=== PATIENT | female | born 1990 | race Caucasian/White ===

== ENCOUNTER 2024-11-24 18:57 | Emergency (ER) | payer OTHER, SELFPAY ==
--- OUTSIDE RECORDS SUMMARY | 2024-11-24 18:59 | XMS_ITS | Encounter Summary ---
Author Organization [facility] Address [address] [place] [address] Care Team Providers Care All Source Intelligence Technician Name Role Phone July Primary Care Provider [phone] Suzette Larson-C Unavailable [phone] Suzette Larson-C Unavailable [phone] Marjorie Murillo PA-C Primary Care Provider [phone] Marjorie Murillo PA-C Unavailable [phone] Encounter Details Date Type Department Care Team (Late st Contact Info) Description 04/19/2020 [facility] Medical Advice [facility] [id number] [place] [address] Charla Darling Social History Tobacco Use Types Packs/Day Years Used Date Smoking Tobacco: Former Cigarettes Q uit: 06/21/2019 Smokeless Tobacco: Never Alcohol Use Standard Drinks/Week Comments Never 0 (1 standard drink = 0.6 oz pur e alcohol) AUDIT-C Answer Date Recorded Q1: How often do you have a drink containing alc ohol? Never 02/09/2020 Average Number of Drinks Not on file 020 Frequency of Binge Drinking Not on file 01/12 [place] Depression Scale Answer Date Recorded [place] Depression Score 3 03/12/2020 Last EPDS Self Harm Result Not on file 03/12 Comments No Sex and Gender Information Value Date Recorded Sex Assigned at Not on file Legal Sex Female 3:17 AM GAMING INVESTIGATOR Gender Identity Not on file Sexual Orientation Not on file COVID-19 Exposure Response Date Recorded In the last month, have you been in contact with someone who was confirmed or suspected to have Coronavirus / COVID-19? No / Unsure 04/15/2020 5:42 PM GAMING INVESTIGATOR documented as of this encounter Plan of Treatment Not on file documented as of this encounter Visit Diagnoses Not on filedocumented in this encounter Care Teams All Source Intelligence Technician Relationship Specialty Start Date End Date July PCP - General Physician Alterations Expert 04/04/15 06/03/23 Marjorie Murillo PA-C [address] [place] [address] PCP - General Family Medicine 06/04/23 Suzette Larson PA-C [address] [place] [address] Physician Alterations Expert 05/07/22 Suzette Larson PA-C [address] [place] [address] Assigned Surgical Provider 04/26/22 12/03/23 Marjorie Murillo PA-C [address] [place] [address] Assigned PCP 07/04/23 documented as of this encounter
--- OUTSIDE RECORDS SUMMARY | 2024-11-24 18:59 | XMS_ITS | Encounter Summary ---
Author Organization [facility] Address [address] [place] [address] Care Team Providers Care Veterinary Parasitologist Name Role Phone July Primary Care Provider [phone] Suzette Larson-C Unavailable [phone] Suzette Larson-C Unavailable [phone] Marjorie Murillo PA-C Primary Care Provider [phone] Marjorie Murillo PA-C Unavailable [phone] Encounter Details Date Type Department Care Team (Late st Contact Info) Description 04/16/2022 [facility] [address] [place] [address] Karin Joy, RN Social History Tobacco Use Types Packs/Day Years [...] of Binge Drinking Not on file 01/12 PHQ-2 Answer Date Recorded PHQ-2 Score Incomplete 04/11/2022 [place] Depression Scale Answer Date Recorded [place] Depression Score 3 03/12/2020 Last EPDS Self Harm Result Not on file 03/12 Comments No Sex and Gender Information Value Date Recorded Sex Assigned at Not on file Legal Sex Female 3:17 AM PRODUCTION HAND Gender Identity Not on file Sexual Orientation Not on file COVID-19 Exposure Response Date Recorded In the last 10 days, have yo u been in contact with someone who was confirmed or suspected to have Coronavirus/COVID-19? No / Unsure 04/17/2022 4:18 PM PRODUCTION HAND documented as of this encounter Plan of Treatment Not on file documented as of this encounter Visit Diagnoses Not on filedocumented in this encounter Care Teams Veterinary Parasitologist Relationship Specialty Start Date End Date July PCP - General Physician Feed Mill Operator 04/04/15 06/03/23 Marjorie Murillo PA-C [address] [place] [address] PCP - General Family Medicine 06/04/23 Suzette Larson PA-C [address] [place] [address] Physician Feed Mill Operator 05/07/22 Suzette Larson PA-C [address] [place] [address] Assigned Surgical Provider 04/26/22 12/03/23 Marjorie Murillo PA-C [address] [place] [address] Assigned PCP 07/04/23 documented as of this encounter
--- OUTSIDE RECORDS SUMMARY | 2024-11-24 18:59 | XMS_ITS | Encounter Summary ---
Author Organization [place] Address Count includes the [facility] [place] [address] Care Team Providers Care Gaming Worker Name Role Phone July Primary Care Provider [phone] Suzette Larson-C Unavailable [phone] Suzette Larson-C Unavailable [phone] Marjorie Murillo PA-C Primary Care Provider [phone] Marjorie Murillo-C Unavailable [phone] Encounter Details Date Type Department Care Team (Late st Contact Info) Description 09/26/2020 [facility] [place] [address] [facility] [address] [place] [address] [facility] Social History Tobacco Use Types Packs/Day Years [...] of Binge Drinking Not on file 01/12 [place] Depression Scale Answer Date Recorded [place] Depression Score 3 03/12/2020 Last EPDS Self Harm Result Not on file 03/12 Comments No Sex and Gender Information Value Date Recorded Sex Assigned at Not on file Legal Sex Female 3:17 AM 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 Gender Identity Not on file Sexual Orientation Not on file documented as of this encounter Plan of Treatment Not on file documented as of this encounter Visit Diagnoses Not on filedocumented in this encounter Care Teams Gaming Worker Relationship Specialty Start Date End Date July PCP - General Physician Consulting Hr Professional 04/04/15 06/03/23 Marjorie Murillo PA-C [address] [place] [address] PCP - General Family Medicine 06/04/23 Suzette Larson PA-C [address] [place] [address] Physician Consulting Hr Professional 05/07/22 Suzette Larson PA-C [address] [place] [address] Assigned Surgical Provider 04/26/22 12/03/23 Marjorie Murillo PA-C [address] [place] [address] Assigned PCP 07/04/23 documented as of this encounter
--- OUTSIDE RECORDS SUMMARY | 2024-11-24 18:59 | XMS_ITS | Encounter Summary ---
Author Organization [place] Address [address] [place] [address] Care Team Providers Care Auto Radiator Mechanic Name Role Phone July Primary Care Provider [phone] Suzette Larson-C Unavailable [phone] Suzette Larson-C Unavailable [phone] Marjorie Murillo PA-C Primary Care Provider [phone] Marjorie Murillo-C Unavailable [phone] Encounter Details Date Type Department Care Team (Late st Contact Info) Description 08/08/2022 [facility] [place] [address] [address] Nichole Wilburn Social History Tobacco Use Types Packs/Day Years [...] Answer Date Recorded PHQ-2 Score Incomplete 04/11/2022 [place] Depression Scale Answer Date Recorded [place] Depression Score 3 03/12/2020 Last EPDS Self Harm Result Not on file 11/30 /2020 Comments No Sex and Gender Information Value Date Recorded Sex Assigned at Not on file Legal Sex Female 3:17 AM WEB DEVELOPMENT 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 Gender Identity Not on file Sexual Orientation Not on file documented as of this encounter Plan of Treatment Not on file documented as of this encounter Visit Diagnoses Not on filedocumented in this encounter Care Teams Auto Radiator Mechanic Relationship Specialty Start Date End Date July PCP - General Physician Pharmacist Intern 04/04/15 06/03/23 Marjorie Murillo PA-C [address] [place] [address] PCP - General Family Medicine 06/04/23 Suzette Larson PA-C [address] [place] [address] Physician Pharmacist Intern 05/07/22 Suzette Larson PA-C [address] [place] [address] Assigned Surgical Provider 04/26/22 12/03/23 Marjorie Murillo PA-C [address] [place] [address] Assigned PCP 07/04/23 documented as of this encounter
--- OUTSIDE RECORDS SUMMARY | 2024-11-24 18:59 | XMS_ITS | Encounter Summary ---
Author Organization [facility] Address [address] [place] [address] Care Team Providers Care Loss Claim Clerk Name Role Phone Suzette Larson PA-C Unavailable [phone] Marjorie Murillo PA-C Primary Care Provider [phone] Marjorie Murillo PA-C Unavailable [phone] Encounter Details Date Type Department Care Team (Late st Contact Info) Description 09/02/2024 Results Follow-Up [facility] [place] [address] [place] [address] Bobbi Chavarria PA-C [address] [place] [address] Subj: Message about your results Social History Tobacco Use Types Packs/Day Years Used Date Smoking Tobacco: Former Cigarettes 0.5 10 0 06/20/2009 - 06/21/2019 Smokeless Tobacco: Never Alcohol Use Standard Drinks/Week Comments Yes 0 (1 standard drink = 0.6 oz pur e alcohol) rare, maybe one drink a month Social Connection and Isolation Panel [NHANES] A nswer Date Recorded Frequency of Communication with Friends and Fami ly Not on file 06/03/2023 How often do you get together with friends or re latives? Twice a week 06/03/2023 Attends Rastafarian Services Not on file 06/03 Active Member of Clubs or Organizations Not on f ile 06/03/2023 Attends Club or Organization Meetings Not on bryson e 06/03/2023 Marital Status Not on file 06/03/2023 AUDIT-C Answer Date Recorded Q1: How often do you have a drink containing alc ohol? Never 02/09/2020 Average Number of Drinks Not on file 020 Frequency of Binge Drinking Not on file 01/12 PHQ-2 Answer Date Recorded PHQ-2 Score 0 07[facility]/2024 [facility] Questionnaire Answer Date Recorded Do you feel stress - tense, restless, nervous, or anxious, or unable to sleep at night because your mind is troubled all the time - these days? Only a little 06/03/2023 Exercise Vital Sign Answer Date Recorde d On average, how many days pe r week do you engage in moderate to strenuous exercise (like a brisk walk)? 2 days Minutes of Exercise per Session Not on file 06/03/2023 [place] Depression Scale Answer Date Recorded Last EPDS Total Score Not on file 03/25/2023 The thought of harming myself has occurred to me . Never 03/25/2023 Adolescent Education Answer Date Record ed Getting School Help Needed Not on file 01/09 Food Insecurity Answer Date Recorded Within the past 12 months, d id you worry that your food would run out before you got money to buy more? No 06/03/2023 Within the past 12 months, d id the food you bought just not last and you didn t have money to get more? No 06/03/2023 Housing Stability Answer Date Recorded Do you have housing? (Housin g is defined as stable permanent housing and does not include staying outside in a car, in a tent, in an abandoned building, in an overnight retirement, or couch-surfing.) Yes 06/03/2023 Are you worried about losing your housing? No 06/03/2023 Financial Resource Strain Answer Date R ecorded Within the past 12 months, h ave you or your family members you live with been unable to get utilities (heat, electricity) when it was really needed? No 06/03/2023 Transportation Needs Answer Date Record ed Within the past 12 months, h as lack of transportation kept you from medical appointments, getting your medicines, non-medical meetings or appointments, work, or from getting things that you need? No 06/03/2023 Interpersonal Safety Answer Date Record ed Do you feel physically and e motionally safe where you currently live? Yes 07/12/2024 Within the past 12 months, h ave you been hit, slapped, kicked or otherwise physically hurt by someone? No 07/12/2024 Within the past 12 months, h ave you been humiliated or emotionally abused in other ways by your partner or ex-partner? No 07/12/2024 Comments No Sex and Gender Information Value Date Recorded Sex Assigned at Not on file Legal Sex Female 3:17 AM SURVEYOR'S ASSISTANT Gender Identity Not on file Sexual Orientation Not on file documented as of this encounter Plan of Treatment Not on file documented as of this encounter Visit Diagnoses Not on filedocumented in this encounter Care Teams Loss Claim Clerk Relationship Specialty Start Date End Date Marjorie Murillo PA-C [address] [place] [address] PCP - General Family Medicine 06/04/23 Suzette Larson PA-C [address] [place] [address] Physician Dry Transfer Worker 05/07/22 Marjorie Murillo PA-C [address] [place] [address] Assigned PCP 07/04/23 documented as of this encounter
--- OUTSIDE RECORDS SUMMARY | 2024-11-24 18:59 | XMS_ITS | Clinical Summary ---
Author Organization [facility] Address [address] [place] [id number] Care Team Providers Care Lsat Instructor Name Role Phone Suzette Larson PA-C Unavailable [phone] Marjorie Murillo PA-C Primary Care Provider Marjorie Murillo PA-C Unavailable [phone] Allergies No known active allergies Medications fluticasone (FLONASE) 50 MCG/ACT nasal sprayIndications :Nasal congestion INSTILL 1 SPRAY INTO BOTH NOSTRILS DAILY 48 mL 2 4 Active Additional Information Patient not taking.Reported on 07/12/2024 olmesartan (BENICAR) 20 MG tabletIndication s:Essential hypertension Take 1 tablet (20 mg) by mouth daily. 90 tablet 5 Active amphetamine-dext roamphetamine (ADDERALL) 15 MG tablet Take 15 mg by mouth 2 times daily. 5 Active venlafaxine (EFFEXOR XR) 150 MG 24 hr capsule Take 150 mg by mouth daily. 5 Active SEMAGLUTIDE-WEIG HT MANAGEMENT SC Inject subcutaneously. 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 Follows with dermatology. ADHD (attention deficit hyperactivity disorder) 04/11/2022 Overview (06/04/2023): Follows with psychiatry Anxiety and depression 04/11/2022 Overview (06/04/2023): Psychiatrist Dr. Caceres History of kidney stones 04/11/2022 Overview (06/04/2023): Saw urology and plan was for stone risk evaluation but she did not proceed with this. She has not had further issues and does not want to follow-up with urology at this time. History of severe pre-eclampsia 05/07/2020 Resolved Problems Problem Noted Date Diagnosed Date Resolved Date Chronic hypertension with espinoza perimposed preeclampsia 03/26/2023 08/13/2023 03/23/2023 06/04/2023 History of hemorrhage 08/26/2022 06/04/2023 Iron deficiency anemia 05/07/202007/12 Overview (06/04/2023): Following with hematology Encounters Date Type Department Care Team Description 10/03/2024 9:00 AM CDT Virtual Visit [facility] [address] [place] [address] Marjorie Murillo PA-C Obesity (BMI 30.0-34.9) (Primary Dx); Essential hypertension 09/29/2024 Telephone [facility] [address] [place] [address] Marjorie Murillo PA-C Refill Request 09/29/2024 Refill [facility] [address] [place] [address] Marjorie Murillo PA-C Medication Refill 09/02/2024 3:50 PM CDT Office Visit [facility] [place] [address] [place] [address] Bobbi Chavarria PA-C Fatigue, unspecified type (Primary Dx); Sore throat; Dizziness 09/02/2024 Results Follow-Up [facility] [address] [place] [address] Bobbi Chavarria PA-C Subj: Message about your results 09/02/2024 Travel from Last 3 Months Immunizations Immunization Administration Dates Next Due Hepatitis B, Adult (Energix-B/Recombivax HB) Influenza Vaccine >6 months,quad, PF 01/23/2020 Influenza,INJ,MDCK,PF,Quad >6mo(Flucelvax) 01/19 RSV (Abrysvo) 03/12/2023 TDAP (Adacel,Boostrix) 01/19/2023,01/23/2020 Family History Medical History Relation Comments Depression Father Diabetes Type 2 Father diet controlled Hypertension Father Substance Abuse Father Unknown/Adopted Maternal Grandfather Moms adopte d father Heart Disease Maternal Grandmother Hypertension Maternal Grandmother Breast Cancer Maternal Great-Grandmother Anxiety Disorder Mother Depression Mother Hypertension Mother Mental Illness Mother ADHD, borderline Skin Cancer Mother Substance Abuse Mother Cancer Paternal Grandfather Esophageal Cancer Paternal Grandfather Hypertension Paternal Grandfather Anxiety Disorder Sister Depression Sister Mental Illness Sister ADHD, borderline Colon Cancer No family hx of Ovarian Cancer No family hx of Relation Status Comments Father Alive Maternal Grandfather Maternal Grandmother Maternal Great-Grandmother Alive Mother Alive Paternal Grandfather Paternal Grandmother Alive Sister Social History Tobacco Use Types Packs/Day Years Used Date Smoking Tobacco: Former Cigarettes 0.5 10 0 06/20/2009 - 06/21/2019 Smokeless Tobacco: Never Tobacco Cessation:Counseling Given: Not Answered Alcohol Use Standard Drinks/Week Comments Yes 0 (1 standard drink = 0.6 oz pur e alcohol) rare, maybe one drink a month Social Connection and Isolation Panel [NHANES] A nswer Date Recorded Frequency of Communication with Friends and Fami ly Not on file 06/03/2023 How often do you get together with friends or re latives? Twice a week 06/03/2023 Attends [employer] Services Not on file 06/03 Active Member [...] Answer Date Recorded PHQ-2 Score 0 07/12/2024 [facility] Occupational Stress Questionnaire Answer Date [...] Exercise per Session Not on file 06/03/2023 [place] Depression Scale Answer Date Recorded Last EPDS [...] Answer Date Recorded Do you have housing? 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 Gender Identity Not on file Sexual Orientation Not on file Last Filed Vital Signs Vital Sign Reading Time Taken Comments Blood Pressure 108/68 09/02/2024 4:01 PM CDT Pulse 96 09/02/2024 4:01 PM CDT Temperature 36.6 C (97.8 F) 09/02/2024 4:01 PM CDT Respiratory Rate 16 09/02/2024 4:01 PM CDT Oxygen Saturation 100% 09/02/2024 4:01 PM CDT Inhaled Oxygen Concentration - - Weight 85.3 kg (188 lb) 09/02/2024 4:01 PM CDT Height 165.1 cm (5' 5) 09/02/2024 4:01 PM CDT Body Mass Index 31.28 09/02/2024 4:01 PM CDT Plan of Treatment Health Maintenance Due Date Last Done Comments ADVANCE CARE PLANNING 1991 HEPATITIS B VACCINE (2 of 3 - 19+ 3-dose series) 07/01/2023 06/03/2023 COVID-19 VACCINE (2023- season) 2023 07/18/2020, 06/20/2020 ANNUAL REVIEW OF HM ORDERS 06/03/2024 06/03/2023 YEARLY PREVENTIVE VISIT 06/03/2024 06/03/2023 INFLUENZA VACCINE (#1) 2024 01/19/2023, 2019 BMP 09/02/2025 09/02/2024, 06/0 08/2023, 03/27/2023, Additional history exists PAP 05/04/2026 05/04/2023, 04/14, 05/07/2020, Additional history exists DTAP/TDAP/TD VACCINE (3 - Td or Tdap) 01/19/2033 01/19/2023, 01/23/2020 ZOSTER VACCINE (1 of 2) 2041 HEPATITIS C SCREENING Completed 08/26/2022 HIV SCREENING Completed 08/26/2022, 08/29/2019 RSV VACCINE Discontinued 03/12/2023 PHQ-2 (once per calendar year) Completed 07/12/2024, 06/03/2023 HPV VACCINE (No Doses Required) Completed MENINGITIS VACCINE Aged Out No longer eligible based on patient's age to complete this topic PNEUMOCOCCAL VACCINE: PEDIATRICS (0 to 5 YEARS) AND AT-RISK PATIENTS (6 to 49 YEARS) Aged Out No longer eligible based on patient's age to complete this topic Procedures Procedure Name Priority Date/Time Associated Diagnosis Comments UA MACROSCOPIC WITH REFLEX TO MICRO AND CULTURE Routine 09/02/2024 5:06 PM CDT Dizziness Fatigue, unspecified type CBC WITH PLATELETS & DIFFERENTIAL Routine 09/02/2024 5:01 PM CDT Dizziness Fatigue, unspecified type CBC WITH PLATELETS AND DIFFERENTIAL Routine 09/02/2024 5:01 PM CDT Dizziness Fatigue, unspecified type VITAMIN D DEFICIENCY SCREENING Routine 09/02/2024 5:01 PM CDT Dizziness Fatigue, unspecified type TSH WITH FREE T4 REFLEX Routine 09/02/2024 5:01 PM CDT Dizziness Fatigue, unspecified type COMPREHENSIVE METABOLIC PANEL STAT 09/02/2024 5:01 PM CDT Dizziness Fatigue, unspecified type GROUP A STREPTOCOCCUS PCR THROAT SWAB Routine 09/02/2024 4:47 PM CDT Sore throat STREPTOCOCCUS A RAPID SCREEN W REFELX TO PCR Routine 09/02/2024 4:47 PM CDT Sore throat HIV ANTIGEN ANTIBODY COMBO Routine 08/29/2019 from Last 3 Months or Most Recently Relevant to Health Maintenance Results * UA Macroscopic with reflex to Microscopic and Culture - Lab Collect (09/02/2024 5:06 PM CDT) Color Urine Yellow Colorless, Straw, Light Yellow, Yellow 09/02/2024 5:08 PM CDT LABORATORY Appearance Urine Clear Clear 09/03/19 5:08 PM CDT [facility] Glucose Urine Negative Negative mg/dL 09/02/2024 5:08 PM CDT [facility] Bilirubin Urine Negative Negative 5:08 PM CDT [facility] Ketones Urine Negative Negative mg/dL 09/02/2024 5:08 PM CDT LABORATORY Specific [place] Urine 1.015 1.003 - 1.035 09/02/2024 5:08 PM CDT LABORATORY Blood Urine Negative Negative 09/02/2024 5:08 PM CDT LABORATORY pH Urine 6.5 5.0 - 7.0 09/02/2024 5:08 PM CDT LABORATORY Protein Albumin Urine Negative Negative mg/dL 09/02/2024 5:08 PM CDT LABORATORY Urobilinogen Urine 1.0 0.2, 1.0 E.U./dL 09/02/2024 5:08 PM CDT [facility] Nitrite Urine Negative Negative 09/02/2024 5:08 PM CDT LABORATORY Leukocyte Esterase Urine Negative Negative 09/02/2024 5:08 PM CDT LABORATORY Urine URINE SPECIMEN / Unknown Non-blood Collection / Unknown 09/02/2024 5:06 PM CDT 09/02/2024 5:06 PM CDT Narrative LABORATORY - 09/02/2024 5:08 PM CDT Microscopic not indicated us Bobbi Chavarria PA-C LAB - URINE ORDERABLES Final Result LABORATORY [facility] [address] [facility] (no room number, 1st floor of clinic) [place] [address], [facility] * CBC with platelets and differential (09/02/2024 5:01 PM CDT) WBC Count 4.1 4.0 - 11.0 10e3/uL 09/02/2024 5:03 PM CDT [facility] RBC Count 4.79 3.80 - 5.20 10e6/uL 09/02/2024 5:03 PM CDT [facility] Hemoglobin 13.5 11.7 - 15.7 g/dL 09/02/2024 5:03 PM CDT [facility] Hematocrit 40.5 35.0 - 47.0 % 09/02/2024 5:03 PM CDT [facility] MCV 85 78 - 100 fL 09/02/2024 5:03 PM CDT [facility] MCH 28.2 26.5 - 33.0 pg 09/02/2024 5:03 PM CDT [facility] MCHC 33.3 31.5 - 36.5 g/dL 09/02/2024 5:03 PM CDT [facility] RDW 13.6 10.0 - 15.0 % 09/02/2024 5:03 PM CDT [facility] Platelet Count 272 150 - 450 10e3/uL 09/02/2024 5:03 PM CDT [facility] % Neutrophils 46 % 09/02/2024 5:03 PM CDT [facility] % Lymphocytes 43 % 09/02/2024 5:03 PM CDT [facility] % Monocytes 7 % 09/02/2024 5:03 PM CDT [facility] % Eosinophils 2 % 09/02/2024 5:03 PM CDT [facility] % Basophils 1 % 09/02/2024 5:03 PM CDT [facility] % Immature Granulocytes 1 % 09/02/2024 5:03 PM CDT [facility] Absolute Neutrophils 1.9 1.6 - 8.3 10e3/uL 09/02/2024 5:03 PM CDT [facility] Absolute Lymphocytes 1.7 0.8 - 5.3 10e3/uL 09/02/2024 5:03 PM CDT [facility] Absolute Monocytes 0.3 0.0 - 1.3 10e3/uL 09/02/2024 5:03 PM CDT [facility] Absolute Eosinophils 0.1 0.0 - 0.7 10e3/uL 09/02/2024 5:03 PM CDT [facility] Absolute Basophils 0.0 0.0 - 0.2 10e3/uL 09/02/2024 5:03 PM CDT [facility] Absolute Immature Granulocytes 0.1 <=0.4 10e3/uL 09/02/2024 5:03 PM CDT LABORATORY Blood BLOOD SPECIMEN / Unknown Venipuncture / Unknown 09/02/2024 5:01 PM CDT 09/02/2024 5:01 PM CDT Bobbi Chavarria PA-C LAB - BLOOD ORDERABLES Final Result [facility] [address] [facility] Lab (no room number, 1st floor of clinic) [place] [address], [facility] * Vitamin D Deficiency (09/02/2024 5:01 PM CDT) Vitamin D, Total (25-Hydroxy) 24 20 - 50 ng/mL 09/03/2024 2:24 PM CDT [facility] Comment:optimum levels Blood BLOOD SPECIMEN / Unknown Venipuncture / Unknown 09/02/2024 5:01 PM CDT 09/02/2024 5:01 PM CDT Narrative [facility] - 09/03/2024 2:24 PM CDT Season, race, dietary intake, and treatment affect the concentration of 23-uzhnzix-Lehmptm D. Values may decrease during winter months and increase during summer months. Vitamin D determination is routinely performed by an immunoassay specific for 25 hydroxyvitamin D3. If an individual is on vitamin D2(ergocalciferol) supplementation, please specify 25 OH vitamin D2 and D3 level determination by LCMSMS test VITD23. Bobbi Chavarria PA-C LAB - BLOOD ORDERABLES Final Result [facility] [address] [facility], [address] [place] [address] * TSH with free T4 reflex (09/02/2024 5:01 PM CDT) TSH 1.62 0.30 - 4.20 uIU/mL 09/03/2024 2:24 PM CDT [facility] Blood BLOOD SPECIMEN / Unknown Venipuncture / Unknown 09/02/2024 5:01 PM CDT 09/02/2024 5:01 PM CDT Bobbi Chavarria PA-C LAB - BLOOD ORDERABLES Final Result [facility] [address] [facility], [address] [place] [address] * Comprehensive metabolic panel (BMP + Alb, Alk Phos, ALT, AST, Total. Bili, TP) (09/02/2024 5:01 PM CDT) Sodium 140 135 - 145 mmol/L 09/02/2024 5:19 PM CDT [facility] Potassium 3.6 3.4 - 5.3 mmol/L 09/02/2024 5:19 PM CDT [facility] Chloride 104 94 - 109 mmol/L 09/02/2024 5:19 PM CDT [facility] Carbon Dioxide (CO2) 25 20 - 32 mmol/L 09/02/2024 5:19 PM CDT [facility] Anion Gap 11 3 - 14 mmol/L 09/02/2024 5:19 PM CDT [facility] Urea Nitrogen 9 7 - 30 mg/dL 09/02/2024 5:19 PM CDT [facility] Creatinine 0.80 0.52 - 1.04 mg/dL 09/02/2024 5:19 PM CDT [facility] GFR Estimate >90 >60 mL/min/1.7 3m2 09/02/2024 5:19 PM CDT [facility] Calcium 9.8 8.5 - 10.1 mg/dL 09/02/2024 5:19 PM CDT [facility] Glucose 93 70 - 99 mg/dL 09/02/2024 5:19 PM CDT [facility] Alkaline Phosphatase 70 40 - 150 U/L 09/02/2024 5:19 PM CDT [facility] AST 32 0 - 45 U/L 09/02/2024 5:19 PM CDT [facility] ALT 22 0 - 50 U/L 09/02/2024 5:19 PM CDT [facility] Protein Total 8.0 6.8 - 8.8 g/dL 09/02/2024 5:19 PM CDT LABORATORY Albumin 4.1 3.4 - 5.0 g/dL 09/02/2024 5:19 PM CDT LABORATORY Bilirubin Total 0.6 0.2 - 1.3 mg/dL 09/02/2024 5:19 PM CDT LABORATORY Blood BLOOD SPECIMEN / Unknown Venipuncture / Unknown 09/02/2024 5:01 PM CDT 09/02/2024 5:01 PM CDT Bobbi Chavarria PA-C LAB - BLOOD ORDERABLES Final Result LABORATORY [address] Lab (no room number, [address] [facility]) [address] * Streptococcus A Rapid Screen w/Reflex to PCR - Clinic Collect (09/02/2024 4:47 PM CDT) Pathologist [facility] A Strep antigen Negative Negative 09/02/2024 5:05 PM CDT [facility] Swab STRUCTURE OF ANTERIOR PORTION OF NECK / Unknown Non-blood Collection / Unknown 09/02/2024 4:47 PM CDT 09/02/2024 4:50 PM CDT Bobbi Chavarria PA-C LAB - MICRO GENERAL ORD ERABLES Final Result LABORATORY [address] (no room number, 1st floor of clinic) [address] * Group A Streptococcus PCR Throat Swab (09/02/2024 4:47 PM CDT) Pathologist [facility] Group A strep by PCR Not Detected Not Detected 09/03/2024 2:16 PM CDT [facility] Swab STRUCTURE OF ANTERIOR PORTION OF NECK / Unknown Non-blood Collection / Unknown 09/02/2024 4:47 PM CDT 09/02/2024 5:05 PM CDT Narrative [facility] - 09/03/2024 2:16 PM CDT The Xpert Xpress Strep A test, performed on the [employer], is a rapid, qualitative in vitro diagnostic test for the detection of Streptococcus pyogenes (Group A -hemolytic Streptococcus, Strep A) in throat swab specimens from patients with signs and symptoms of pharyngitis. The Xpert Xpress Strep A test can be used as an aid in the diagnosis of Group A Streptococcal pharyngitis. The assay is not intended to monitor treatment for Group A Streptococcus infections. The Xpert Xpress Strep A test utilizes an automated real-time polymerase chain reaction (PCR) to detect Streptococcus pyogenes DNA. Bobbi Chavarria PA-C LAB - MICRO GENERAL ORD ERABLES Final Result [facility] [address] [facility], [address] [place] [address] * HIV Antigen Antibody Combo (08/29/2019) HIV Antigen Antibody Combo Negative Blood specimen (specimen) Patient Reported LAB - BLOOD ORDERABLES Final Re sult from Last 3 Months or Most Recently Relevant to Health Maintenance Insurance [facility] * Guarantor: Chantelle Hudson Account Type Relation to Patient Date of Phone Billing Address Personal/Family [id number] [place] [address] [employer] Advance Directives For more information, please contact: [phone] * Full Code (Latest Code Status on File) Date Activated Date Inactivated Comments 03/23/2023 10:11 AM 03/27/2023 5:09 PM All basic and advanced life-sustaining interventions are performed as appropriate Question Answer Comments Code status determined by: Discussion with patie nt/ legal decision maker * Full Code Date Activated Date Inactivated Comments 03/23/2023 6:20 AM 03/23/2023 10:11 AM All basic and advanced life-sustaining interventions are performed as appropriate Question Answer Comments Code status determined by: Discussion with patie nt/ legal decision maker * Full Code Date Activated Date Inactivated Comments 03/10/2020 5:27 AM 03/12/2020 11:42 PM All basic and advanced life-sustaining interventions are performed as appropriate Question Answer Comments Code status determined by: Discussion with patie nt/ legal decision maker * Full Code Date Activated Date Inactivated Comments 02/24/2020 1:54 PM 02/28/2020 12:19 PM Question Answer Comments Code status determined by: Discussion with patie nt/ legal decision maker * Full Code Date Activated Date Inactivated Comments 02/20/2020 8:54 AM 02/23/2020 2:54 PM All basic a nd advanced life-sustaining interventions are performed as appropriate Question Answer Comments Code status determined by: Discussion with patie nt/ legal decision maker Care Teams Lsat Instructor Relationship Specialty Start Date End Date Marjorie Murillo PA-C [address] [place] [address] PCP - General Family Medicine 06/04/23 Suzette Larson PA-C [address] [place] [address] Physician Military Analyst 05/07/22 Marjorie Murillo PA-C [address] [place] [address] Assigned PCP 07/04/23
--- OUTSIDE RECORDS SUMMARY | 2024-11-24 18:59 | XMS_ITS | Clinical Summary ---
Author Organization [facility] Address [address] [address] Care Team Providers Care Cell Tower Climber Name Role Phone Unassigned, Provider Primary Care Provider Unava ilable Source Comments You are receiving this document as you are listed as the primary care provider,follow-up provider, or the patient has been referred to you for consultation.This is in compliance with the Medicare and[facility] EHR Incentive Program,which states Providers who transition their patient to another setting of careor provider of care or refers their patient to another provider of care shouldprovide summary care record for each transition of care or referral. [facility] Allergies No known active allergies Medications amphetamine-dex troamphetamine (ADDERALL XR) 30 MG 24 hour release capsule Take 2 Capsules (60 mg) by mouth daily. Active vitamin-ferrous fumarate-folic acid (PRENATALPLUS) 27-1 MG tablet Take 1 Tablet by mouth daily. Active venlafaxine (EFFEXORXR) 75 MG 24 hour release capsule Take 1 Capsule (75 mg) by mouth daily. 90 Capsule 3 08/26/2022 Active labetalol (TRANDATE) 200 MG tablet Take 4 Tablets (800 mg) by mouth every 8 hours. 180 Tablet 3 04/23/2023 Active Active Problems Problem Noted Date Diagnosed Date History of hemorrhage 08/26/2022 Iron deficiency anemia 05/07/2020 Kidney stones Anxiety and depression Overview (05/07/2020): Psychiatrist Dr. Caceres ADHD (attention deficit hyperactivity disorder) Resolved Problems Problem Noted Date Diagnosed Date Resolved Date Chronic hypertension with espinoza perimposed preeclampsia 03/26/2023 05/04/2023 Hx of preeclampsia, prior pr egnancy, currently 11/28/2022 05/04/2023 Placenta previa without hemo rrhage in second trimester 11/28/2022 05/04/2023 Supervision of high risk pre gnancy in first trimester 08/26/2022 05/04/2023 Miscarriage 09/06/2021 05/04/2023 Overview (09/06/2021): Added automatically from request for surgery [id number] Chronic hypertension affecting 08/20/2021 05/04/2023 High risk , antepartum 08/20/2021 08/26/2022 History of severe pre-eclampsia 05/07/2020 05/04/2023 Pre-eclampsia in third trimester 03/05/2020 05/07/2020 Postoperative state 03/05/2020 03/05/20 Immunizations Immunization Administration Dates Next Due Adult RSV Abrysvo 03/12/2023 Influenza (Flucelvax), Preserv Free QIV 01/20/20 Influenza IIV4 (Quadrivalent) 0.5mL ([id number]) 01/11 Moderna Monovalent 12+ 07/18/2020,06/20/2020 Tdap 01/19/2023,01/23/2020 Family History Medical History Relation Name Comments Hypertension Father Kidney Disorder Father Kidney stone s Depression Mother Hypertension Mother Mental Disorder Mother Cancer Paternal Grandfather Hypertension Paternal Grandfather Kidney Disorder Paternal Grandfather Kidn ey stones Hypertension Paternal Grandmother Depression Sister Cancer, Breast Negative Family History Cancer, Colon Negative Family History Cancer, Ovary Negative Family History Relation Name Status Comments Father Alive Mother Alive Maternal Grandfather Maternal Grandmother Alive Paternal Grandfather Paternal Grandmother Alive Sister Alive Social History Tobacco Use Types Packs/Day Years Used Date Smoking Tobacco: Never Smokeless Tobacco: Never Tobacco Cessation:Counseling Given: Not Answered Alcohol Use Standard Drinks/Week Comments Not Currently 0 (1 standard drink = 0.6 oz pur e alcohol) Depression Answer Date Recor ded Last EPDS Total Score 0 05/21/2024 Last EPDS Self Harm Result Not on file 05/21 Comments No Sex and Gender Information Value Date Recorded Sex Assigned at Not on file Legal Sex Female 6:10 AM CDT Gender Identity Not on file Sexual Orientation Not on file 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 on file Not on file No t on file Last Filed Vital Signs Vital Sign Reading Time Taken Comments Blood Pressure 136/89 06/26/2023 2:55 PM CDT Pulse 63 06/26/2023 2:55 PM CDT Temperature 36.1 C (97 F) 03/04/2023 8:57 AM FLOAT NURSE Respiratory Rate 16 09/10/2022 1:35 PM CDT Oxygen Saturation 99% 03/11/2023 10:37 AM FLOAT NURSE Inhaled Oxygen Concentration - - Weight 86.8 kg (191 lb 4.8 oz) 06/26/2023 2:55 P M CDT Height 165.1 cm (5' 5) 08/26/2022 1:26 PM CDT Body Mass Index 31.83 08/26/2022 1:26 PM CDT Plan of Treatment Health Maintenance Due Date Last Done Comments Adult Preventive Visit 2009 HepB Vaccine (1) 2010 COVID-19 Vaccine (3 - 2023-2 5 season) 2023 07/18/2020, 06/20/2020 Influenza Vaccine (#1) 2024 , 01/23/2020 Cervical Cancer Screening 05/04/20282023, 05/04/2023, 05/07/2020 DTaP/Tdap/Td Vaccine (3 - Tdap) 01/19/2033 01/19/2023, 01/23/2020 Zoster/Shingles Vaccine (1 o f 2) 2041 HIV Screening (Preventive Services) Completed 08/26/2022 Hep C Screening (Preventive Services) Completed 08/26/2022 HPV Vaccine Aged Out No longer eligi ble based on patient's age to complete this topic HepA Vaccine Aged Out No longer eligi ble based on patient's age to complete this topic Hib Vaccine Aged Out No longer eligi ble based on patient's age to complete this topic IPV (Polio) Vaccine Aged Out No longe r eligible based on patient's age to complete this topic MCV4 Vaccine Aged Out No longer eligi ble based on patient's age to complete this topic Meningococcal B Vaccine Aged Out No l onger eligible based on patient's age to complete this topic Pneumococcal Vaccine Aged Out No long er eligible based on patient's age to complete this topic Procedures Procedure Name Priority Date/Time Associated Diagnosis Comments HPV WITH 16 18 GENOTYPING, CERVICAL/ENDOCERVIC AL Routine 05/04/2023 9:50 AM FLOAT NURSE Pap smear for cervical cancer screening HIV 1/2 AG/AB 4TH GEN Routine 08/26/2022 2:10 PM CDT Supervision of high risk in first trimester HEPATITIS C ANTIBODY, WITH REFLEX (ANTI-HCV) Routine 08/26/2022 2:10 PM CDT Supervision of high risk in first trimester from Last 3 Months or Most Recently Relevant to Health Maintenance Results * HPV with 16 18 Genotyping (05/04/2023 9:50 AM FLOAT NURSE) HPV High Risk Type 16 PCR Not Detected Not detected 05/26/2023 11:23 AM FLOAT NURSE [facility] HPV High Risk Type 18 PCR Not Detected Not Detected 05/26/2023 11:23 AM [facility] HPV High Risk Other Than 16/18 Not Detected Not detected 05/26/2023 11:23 AM [facility] Cervical Broom ENTIRE ENDOCERVIX / Unknown 05/04/2023 9:50 AM FLOAT NURSE 05/04/2023 9:56 AM FLOAT NURSE us Kierra Dickson DO LAB_[address] [place] [address], [facility] * HIV 1/2 Ag/Ab 4th Generation (08/26/2022 2:10 PM CDT) HIV 1/2 Antigen/Antib raz (4th generation) Negative (Non Reactive) Negative (Non Reactive) 08/26/2022 8:54 PM CDT [facility] Comment:HIV-1 p24 Antigen an d HIV-1/HIV-2 Antibody not detected Blood Venipuncture / Unknown 08/26/2022 2:10 PM CDT 08/26/2022 2:10 PM CDT Karin Jack APRN, [facility] Final Result Performing Organization Address [facility] Phone Number [facility] [address] [place] [address] * Hepatitis C Antibody, with Reflex (08/26/2022 2:10 PM CDT) Hepatitis C Antibody Negative (Non Reactive) Negative (Non Reactive) 08/26/2022 8:54 PM CDT [facility] Comment:Antibodies to HCV no t detected. Does not exclude the possiblity of exposure to HCV. Blood Venipuncture / Unknown 08/26/2022 2:10 PM CDT 08/26/2022 2:10 PM CDT Karin Jack APRN, [facility] Final Result Performing Organization Address [facility] de Phone Number [facility] [address] [place] [address] from Last 3 Months or Most Recently Relevant to Health Maintenance Insurance Advance Directives * Full Code (Latest Code Status on File) Date Activated Date Inactivated Comments 09/10/2021 9:58 AM 09/10/2021 12:42 PM Care Teams Cell Tower Climber Relationship Specialty Start Date End Date Unassigned, Provider [address] [place] [id number] PCP - General 02/24/07
[2024-11-24 19:08] VITALS: BP 113/81; PULSE 110; RESP 20; TEMP 36; O2SAT 99; BMI 31.0
--- NOTE | 2024-11-24 19:27 | ED.GENADULT ---
HPI - General Adult General Time Seen by Provider: 19:27 Date Seen: 11/24/24 Chief complaint: Skin/Abscess/Foreign Body Stated complaint: R pinky finger lac Time Seen by Provider: 11/24/24 19:02 Source: patient Mode of arrival: ambulatory Limitations: no limitations History of Present Illness HPI narrative: Christina is a 34-year-old female presents emergency department via private car and with family member with a left pinky finger laceration. Patient states that she was cutting some cucumbers with a new slicer, she is right-hand dominant, she ended up sustaining a laceration to the pulp of the right pinky finger. Patient was unable to control the bleeding, she was then brought to the emergency department. Patient is up-to-date on her tetanus. She does have full range of motion of that finger, she is not on any anticoagulation. Patient had been doing well prior to the incident. Related Data Home Medications ?Medication ?Instructions ?Recorded ?Confirmed dextroamphetamine-amphetamine 10 1 tab PO BID PRN 11/24/24 11/24/24 mg tablet dextroamphetamine-amphetamine 15 1 tab PO 3XD 11/24/24 11/24/24 mg tablet olmesartan 20 mg tablet 20 mg PO DAILY 11/24/24 11/24/24 venlafaxine 150 mg 150 mg PO DAILY 11/24/24 11/24/24 capsule,extended release 24 hr venlafaxine 37.5 mg 37.5 mg PO DAILY 11/24/24 11/24/24 capsule,extended release 24 hr Allergies Allergy/AdvReac Type Severity Reaction Status Date / Time No Known Drug Allergies Allergy Verified 11/24/24 19:07 Review of Systems Status of ROS: Reports: 10 or more systems reviewed and unremarkable except as noted in History and below Exam Narrative: Exam Narrative: General: in distress. HEENT: PERRL, extraocular muscles intact Lungs: Pulmonary effort normal Heart: Sinus tachycardia Muscle skeletal right hand: On the pulp there is around 1 cm dermal slice, no muscle or tendon involvement. Patient has full range of motion extension and flexion of the DIP. Const: Vital Signs, click to edit/add: Vital Signs - 24 hr 11/24/24 19:08 Temperature 96.8 F L Pulse Rate [Pulse Oximeter] 110 H Respiratory Rate 20 Blood Pressure [Ri ght Upper Arm] 113/81 Pulse Oximetry 99 Oxygen Delivery Me thod Room Air Course Course ED Course: 7:30 PM: aidet performed. Vitals show mild tachycardia, otherwise normal, based on history and physical exam no laceration repair will be complete, will apply surgeon foam to the dermal slice area to control the bleeding, pressure dressing will be applied, patient is up-to-date on her tetanus status, she will leave the dressing on until tomorrow, once bleeding is controlled can clean with soap and water, application of bacitracin. Differential includes laceration, fracture, vascular damage, nerve damage, ligament damage. Reevaluation(s) Time of Reevaluation #1: 19:53 Reevaluation #1: Laceration repair complete, please see procedure note, no recurrence of bleeding, she is up-to-date on her tetanus status, will plan to discharge, written instructions given, she should follow up with her primary care provider over the next 7-10 days as needed. Return precautions given. Vital Signs Vital signs: Initial Vital Signs Temperature 96.8 F L 11/24/24 19:08 Temperature Source Temporal Artery Scan 11/24/24 19:08 Pulse Rate 110 H 11/24/24 19:08 Respiratory Rate 20 11/24/24 19:08 Blood Pressure 113/81 11/24/24 19:08 Blood Pressure Mean 91 11/24/24 19:08 Pulse Oximetry 99 11/24/24 19:08 Oxygen Delivery Method Room Air 11/24/24 19:08 Vital Signs Temperature 96.8 F L 11/24/24 19:08 Pulse Rate 110 H 11/24/24 19:08 Respiratory Rate 20 11/24/24 19:08 Blood Pressure 113/81 11/24/24 19:08 Pulse Oximetry 99 11/24/24 19:08 Oxygen Delivery Method Room Air 11/24/24 19:08 Temperature 96.8 F L 11/24/24 19:08 Pulse Rate 110 H 11/24/24 19:08 Respiratory Rate 20 11/24/24 19:08 Blood Pressure 113/81 11/24/24 19:08 Pulse Oximetry 99 11/24/24 19:08 Oxygen Delivery Method Room Air 11/24/24 19:08 Discharge Plan Discharge Clinical Impression: Laceration of right little finger without damage to nail Patient Disposition: Home, Self-Care Instructions: Finger Laceration (ED) Additional Instructions: Once bleeding has stopped, can apply bacitracin to the area and cover with regular bandage for protection. In time granulation tissue with replace the wound making it more comfortable and not so sensitive. There is some OTC skin adhesive that can be applied as a bumper for protection as well. Prescriptions: No Action venlafaxine 37.5 mg capsule,extended release 24hr 37.5 mg PO DAILY dextroamphetamine-amphetamine 10 mg tablet 1 tab PO BID PRN venlafaxine 150 mg capsule,extended release 24hr 150 mg PO DAILY dextroamphetamine-amphetamine 15 mg tablet 1 tab PO 3XD olmesartan 20 mg tablet 20 mg PO DAILY Stand Alone Forms: [facility] Info Instructions Procedures Laceration Laceration 1: Pre procedure diagnosis: Finger laceration Post procedure diagnosis: Finger laceration Written consent by: patient Verification/time out: correct patient Name of person performing procedure: James Shell Site: hand ( pinky finger) Side (If applicable): right Size (cm): 1 Description: other (Circular) Depth: simple, single layer Local Anesthetic: bupivacaine 0.25% Pre-repair: wound explored Skin layer closed with: other (Surgifoam and pressure dressing. )
== END 2024-11-24 20:14 | disposition home or self-care (01) ==
LOC: ED 20:11
PROVIDERS: Emergency Provider Student in an Organized Health Care Education/Training Program
DX: S61.217A Laceration without foreign body of left little finger without damage to nail, initial encounter (principal); W26.8XXA Contact with other sharp object(s), not elsewhere classified, initial encounter
CPT/HCPCS: 12001; 99283; 99284